=== PATIENT | male | born 1945 | race Hispanic/Latino ===

== ENCOUNTER 2016-08-25 13:35 | Observation (INO) | payer MEDICARE, OTHER ==
--- NOTE | 2016-08-25 13:49 | ED PDOC ---
Arrival/HPI <Manuel Connolly - Last Filed: 08/25/16 18:08> <Xuan Escamilla - Last Filed: 08/25/16 18:17> - General Chief Complaint: High Blood Pressure Time Seen by Provider: 08/25/16 13:38 - History of Present Illness Narrative History of Present Illness (Text): 08/25/16 14:35 71 y/o M w/ PMHx of HTN presents to the ED c/o nausea and vomiting 2/2 high blood pressure. Pt reports elevated BP over the last 1-2wks. Pt states BP has risen even higher over the last few days, causing nausea, vomiting, and dizziness. Pt states this has happened before when his BP was elevated. Pt has not been able to tolerate PO intake since . NBNB vomiting started on Thursday after PO intake. Pt also admits to decreased appetite in addition to general nausea. Dizziness described as both pre-syncopal and vertigo - dizziness made worse w/ head mvt. Pt denies syncope, F/C, [place], diplopia, blurry vision, CP, SOB, abd pain, D/C, edema. (Xuan Escamilla) Past Medical History - Provider Review Nursing Documentation Reviewed: Yes - Psychiatric Hx Depression: No Hx Emotional Abuse: No Hx Physical Abuse: No Hx Substance Use: No - Suicidal Assessment Feels Threatened In Home Enviroment: No <Xuan Escamilla - Last Filed: 08/25/16 18:17> Family/Social History - Physician Review Nursing Documentation Reviewed: Yes Family/Social History: No Known Family HX Hx Alcohol Use: Yes (social) Hx Substance Use: No Hx Substance Use Treatment: No <Xuan Escamilla - Last Filed: 08/25/16 18:17> Allergies/Home Meds <Manuel Connolly - Last Filed: 08/25/16 18:08> <Xuan Escamilla - Last Filed: 08/25/16 18:17> Allergies/Adverse Reactions: Allergies No Known Allergies Allergy (Verified 08/25/16 13:49) Home Medications: Home Meds Medication Instructions Recorded Confirmed Amlodipine/Valsartan 1 tab PO DAILY 08/25/16 08/25/16 [Amlodipine-Valsartan 10-160 mg] Amoxicillin/Clavulanate [Augmentin 1 tab PO BID 08/25/16 08/25/16 875 MG-125 MG Tab] Cholecalciferol (Vitamin D3) 1 tab PO DAILY 08/25/16 08/25/16 [Vitamin D3] Naproxen [Naproxen] 500 mg PO BID 08/25/16 08/25/16 Pravastatin Sodium [Pravachol] 20 mg PO DAILY 08/25/16 08/25/16 Review of Systems - Physician Review All systems were reviewed & negative as marked: Yes - Review of Systems Constitutional: absent: Fevers Eyes: absent: Vision Changes <Xuan Escamilla - Last Filed: 08/25/16 18:17> Physical Exam - Systems Exam Skin: Present: Abrasion <Manuel Connolly - Last Filed: 08/25/16 18:08> Vital Signs Reviewed: Yes Temperature: Afebrile Blood Pressure: Hypertensive Pulse: Bradycardic Respiratory Rate: Normal Appearance: Positive for: Non-Toxic, Comfortable Pain Distress: None Mental Status: Positive for: Alert and Oriented X 3 - Systems Exam Head: Present: Atraumatic, Normocephalic Pupils: Present: PERRL Extroacular Muscles: Present: EOMI Conjunctiva: Present: Normal Mouth: Present: Dry. No: Normal Teeth (poor dentition) Nose (Internal): Present: Normal Inspection Neck: Present: Normal Range of Motion Respiratory/Chest: Present: Clear to Auscultation, Good Air Exchange. No: Respiratory Distress, Accessory Muscle Use Cardiovascular: Present: Regular Rate and Rhythm, Normal S1, S2. No: Murmurs Abdomen: Present: Tenderness, Normal Bowel Sounds. No: Distention, Peritoneal Signs, Rebound, Guarding Upper Extremity: No: Cyanosis, Edema Lower Extremity: Present: Normal Inspection. No: Edema, CALF TENDERNESS Neurological: Present: GCS=15, Speech Normal, Other (negative Stoddard-Halpike) Skin: Present: Warm, Dry, Normal Color Psychiatric: Present: Alert, Oriented x 3, Normal Insight, Normal Concentration <AndiXuan - Last Filed: 08/25/16 18:17> Vital Signs Temp Pulse Resp BP Pulse Ox 08/25/16 18:12 86 171/92 H 08/25/16 17:22 76 18 178/89 H 98 08/25/16 15:20 163/91 H 08/25/16 13:55 98.3 F 53 L 18 172/83 H 97 Medical Decision Making <Manuel Connolly - Last Filed: 08/25/16 18:08> - Lab Interpretations I have reviewed the lab results: Yes Interpretation: No clinic. lab abnormalty - RAD Interpretation Tower Climber: ED Physician (CXR: No active disease), Radiologist (CXR: no active disease; Head CT negative for hemorrhage) - EKG Interpretation Interpreted by ED Physician: Yes (sinus nkechi, rate 51, no ST abnormalities) Type: 12 lead EKG <Xuan Escamilla - Last Filed: 08/25/16 18:17> ED Course and Treatment: Patient seen and examined with resident Came up with treatment and disposition plan with resident Elderly male with a history of hypertension with nausea, vomiting. No focal neurological deficits on examination. Patient's abdomen is also soft nontender nondistended with positive bowel sounds in all 4 quadrants and no peritoneal signs. Patient's primary physician recommends observation in the hospital. Dr. Escamilla discussed with Dr. Mondragon who accepted patient to his service. Patient with no focal neurological deficits, currently asymptomatic except for hypertension, aware of and agrees with plan. (Manuel Connolly) 08/25/16 14:46 71 y/o M w/ nausea, vomiting, and elevated BP - CBC, CMP, Lipase - Cardiac ISO - Urinalysis - CXR - EKG - Pepcid, Zofran - NS bolus - Home med: Amlodipine 10mg/Valsartan 160mg - reassess and dispo 08/25/16 17:08 decreased nausea after reglan and benadryl. Head CT negative for hemorrhage. Nonspecific white matter changes identifies. 08/25/16 17:17 No vomiting in ED. Nausea improved. Pt ambulatory at bedside. Pt agreeable w/ discharge plan Pt to follow up w/ PMD as soon as possible for HTN. 08/25/16 17:33 Spoke to Pt's PMD, Dr. Asha Dominguez, who wants pt admitted for observation. States pt was unsteady and unable to ambulate at home. 08/25/16 18:[address] Mondragon who recommended 10mg Hydralzine for HTN. Pt admitted to Remote Tele Obs under Dr. Mondragon. ([facility]) - Lab Interpretations Lab Results: 08/25/16 15:15 08/25/16 15:15 Lab Results 08/25/16 17:10: Urine Color Yellow, Urine Appearance Clear, Urine pH 6.0, Ur Specific Rush >= 1.030, Urine Protein Trace H, Urine Glucose (UA) Negative, Urine Ketones >=80, Urine Blood Negative, Urine Nitrate Negative, Urine Bilirubin Small H, Urine Urobilinogen 0.2, Ur Leukocyte Esterase Negative, Urine RBC Pending, Urine WBC Pending 08/25/16 15:15: Sodium 140, Potassium 4.4, Chloride 104, Carbon Dioxide 22, Anion Gap 18, BUN 34 H, Creatinine 1.2, Est GFR ( Amer) > 60, Est GFR ( Non-Af Amer) 60, Random Glucose 101, Calcium 10.0, Total Bilirubin 1.6 H, AST 31 , ALT 28, Alkaline Phosphatase 72, Lactate Dehydrogenase 417, Total Creatine Kinase 120, Troponin I < 0.01, Total Protein 8.0, Albumin 4.5, Globulin 3.4, Albumin/Globulin Ratio 1.3, Lipase 45 08/25/16 15:15: WBC 7.9, RBC 4.95, Hgb 15.7, Hct 44.4, MCV 89.7, MCH 31.7, MCHC 35.4, RDW 12.7, Plt Count 216, MPV 10.5, Gran % 90.5 H, Lymph % (Auto) 6.6 L, [place] % (Auto) 2.5, Eos % (Auto) 0.1 L, Baso % (Auto) 0.3, Gran # 7.13 H, Lymph # 0.5 L, [place] # 0.2, Eos # 0.0, Baso # 0.02 - RAD Interpretation Radiology Orders: 08/25/16 14:32 CXR [CHEST PORTABLE] [RAD] Stat 08/25/16 15:37 HEAD W/O CONTRAST [CT] Stat - Medication Orders Current Medication Orders: Hydralazine HCl (Apresoline) 10 mg IVP STAT LUDWIN Last Admin: 08/25/16 18:12 Dose: 10 mg Discontinued Medications Amlodipine Besylate (Norvasc) 10 mg PO STAT STA Stop: 08/25/16 14:33 Last Admin: 08/25/16 15:20 Dose: 10 mg Diphenhydramine HCl (Benadryl) 25 mg IVP STAT STA Stop: 08/25/16 15:37 Last Admin: 08/25/16 16:35 Dose: 25 mg Famotidine (Pepcid) 20 mg IVP STAT STA Stop: 08/25/16 14:31 Last Admin: 08/25/16 15:17 Dose: 20 mg Sodium Chloride (Sodium Chloride 0.9%) 1,000 mls @ 999 mls/hr IV .Q1H1M STA Stop: 08/25/16 15:31 Last Admin: 08/25/16 15:18 Dose: 999 mls/hr Losartan Potassium (Cozaar) 100 mg PO ONCE ONE Stop: 08/25/16 14:36 Last Admin: 08/25/16 15:20 Dose: 100 mg Metoclopramide HCl (Reglan) 10 mg IVP STAT STA Stop: 08/25/16 15:37 Last Admin: 08/25/16 16:35 Dose: 10 mg Ondansetron HCl (Zofran Inj) 4 mg IVP STAT STA Stop: 08/25/16 14:31 Last Admin: 08/25/16 15:17 Dose: 4 mg Disposition/Present on Arrival <Manuel Connolly - Last Filed: 08/25/16 18:08> - Present on Arrival Any Indicators Present on Arrival: No - Disposition Have Diagnosis and Disposition been Completed?: Yes Disposition Time: 17:21 Patient Plan: Observation <Xuan Escamilla - Last Filed: 08/25/16 18:17> - Disposition Diagnosis: Hypertension, Nausea Disposition: HOSPITALIZED Patient Problems: Current Active Problems Problem Status Onset Hypertension Acute Nausea Acute Condition: FAIR Referrals: PCP,NO [Primary Care Provider] - Follow up with primary
[2016-08-25 13:56] VITALS: BMI 31.7
[2016-08-25] MEDS ORDERED: Sodium Chloride 0.9% 1,000 ML IV STA (14:31)
--- NOTE | 2016-08-25 14:55 | RAD ---
HISTORY: nausea/vomiting COMPARISON: No prior. FINDINGS: LUNGS: No active pulmonary disease. PLEURA: No significant pleural effusion identified, no pneumothorax apparent. CARDIOVASCULAR: Normal. OSSEOUS STRUCTURES: No significant abnormalities. VISUALIZED UPPER ABDOMEN: Normal. OTHER FINDINGS: None. IMPRESSION: No active disease.
[2016-08-25 15:20] LABS: ADD MANUAL DIFF? NO
[2016-08-25 15:24] LABS: BASO # 0.02 K/mm3 (0.0-2.0); BASO % 0.3 % (0.0-3.0); EOS % 0.1 % (1.5-5.0); GRAN # 7.13 (1.4-6.5); GRAN % 90.5 % (50.0-68.0); HEMATOCRIT 44.4 % (42.0-52.0); LYMPH # 0.5 (1.2-3.4); LYMPH % 6.6 % (22.0-35.0); MEAN CELL VOLUME 89.7 fL (80.0-105.0); MEAN CORPUSCULAR HEMOGLOBIN 31.7 pg (25.0-35.0); MEAN CORPUSCULAR HGB CONC 35.4 g/dl (31.0-37.0); MEAN PLATELET VOLUME 10.5 fl (7.0-11.0); MONO # 0.2 (0.1-0.6); MONO % 2.5 % (1.0-6.0); PLATELET COUNT 216 10^3/uL (120.0-450.0); RED CELL DISTRIBUTION WIDTH 12.7 % (11.5-14.5); WHITE BLOOD COUNT 7.9 10^3/ul (4.5-11.0)
[2016-08-25] MEDS ORDERED: DiphenhydrAMINE 50 mg/ml Inj IVP STA (15:36)
[2016-08-25 15:42] LABS: ALB/GLOB RATIO 1.3 (1.1-1.8); ALKALINE PHOSPHATASE 72 U/L (38-133); ALT/SGPT 28 U/L (7-56); AST/SGOT 31 U/L (15-59); BILIRUBIN,TOTAL 1.6 mg/dL (0.2-1.3); BLOOD UREA NITROGEN 34 mg/dL (7-21); CARBON DIOXIDE 22 mmol/L (21-33); CHLORIDE 104 mmol/L (98-107); GFR AFRICAN-AMERICAN > 60; GLUCOSE,RANDOM 101 mg/dL (70-110); LIPASE 45 U/L (23-300); POTASSIUM 4.4 mmol/L (3.6-5.0); SODIUM 140 mmol/L (132-148)
[2016-08-25 16:06] LABS: TROPONIN I < 0.01 ng/mL
--- NOTE | 2016-08-25 17:03 | CT ---
PROCEDURE: CT HEAD WITHOUT CONTRAST. HISTORY: dizziness w/ HTN COMPARISON: None available. TECHNIQUE: Axial computed tomography images were obtained through the head/brain without intravenous contrast. Radiation dose: Total exam DLP = 711.58 mGy-cm. This CT exam was performed using one or more of the following dose reduction techniques: Automated exposure control, adjustment of the mA and/or kV according to patient size, and/or use of iterative reconstruction technique. FINDINGS: HEMORRHAGE: No intracranial hemorrhage. BRAIN: Diffuse atrophy with prominence of the ventricles and sulci noted. No mass effect or edema. Intracranial atherosclerotic calcifications. Mild scattered white matter hypodensities, which are nonspecific, but often seen with chronic microvascular ischemic disease. Please note that MRI with diffusion imaging is more sensitive in the detection of acute ischemic event. VENTRICLES: No hydrocephalus. CALVARIUM: Unremarkable. PARANASAL SINUSES: Unremarkable as visualized. No significant inflammatory changes. MASTOID AIR CELLS: Unremarkable as visualized. No inflammatory changes. OTHER FINDINGS: None. IMPRESSION: Generalized atrophy. Mild nonspecific scattered white matter changes.
[2016-08-25 17:23] LABS: URINE BILIRUBIN SMALL (NEGATIVE); URINE BLOOD NEGATIVE (NEGATIVE); URINE GLUCOSE (UA) NEGATIVE (NEGATIVE); URINE KETONE >=80 mg/dL (NEGATIVE); URINE LEUKOCYTE ESTERASE NEGATIVE Leu/uL (NEGATIVE); URINE PROTEIN TRACE mg/dL (<30 mg/dL); URINE UROBILINOGEN 0.2 E.U./dL (<1 E.U./dL)
[2016-08-25 17:27] LABS: URINE APPEARANCE CLEAR (CLEAR); URINE COLOR YELLOW (YELLOW)
[2016-08-25 18:15] LABS: URINE BACTERIA MOD (NEG); URINE RBC 0 - 2 /hpf (0-2); URINE WBC 0 - 2 /hpf (0-6)
[2016-08-25] MEDS ORDERED: Pantoprazole 40 mg EC Tab PO STA (19:48)
--- NOTE | 2016-08-25 20:33 | CARD ---
APPROVED REPORT EKG Measurement Heart [id number] <Conclusion> Sinus bradycardia Otherwise normal ECG
[2016-08-25 21:10] LABS: TROPONIN I 0.01 ng/mL
[2016-08-25 21:11] LABS: FREE T4 1.04 ng/dL (0.78-2.19); T4 9.6 ug/dL (5.5-11.0)
[2016-08-25 21:24] LABS: THYROID STIMULATING HORMONE 1.3 mIU/mL (0.46-4.68)
[2016-08-26 01:07] LABS: URIC ACID 7.3 mg/dL (3.5-8.5)
[2016-08-26 01:20] LABS: TROPONIN I 0.03 ng/mL
[2016-08-26] MEDS ORDERED: Pantoprazole 40 mg EC Tab PO SCH (06:30)
[2016-08-26 07:49] LABS: ADD MANUAL DIFF? NO
[2016-08-26 07:52] LABS: BASO # 0.04 K/mm3 (0.0-2.0); BASO % 0.6 % (0.0-3.0); EOS # 0.2 (0.0-0.7); EOS % 3.6 % (1.5-5.0); GRAN # 4.65 (1.4-6.5); GRAN % 70.1 % (50.0-68.0); HEMATOCRIT 39.4 % (42.0-52.0); LYMPH # 1.1 (1.2-3.4); LYMPH % 16.4 % (22.0-35.0); MEAN CELL VOLUME 89.1 fL (80.0-105.0); MEAN CORPUSCULAR HEMOGLOBIN 31.7 pg (25.0-35.0); MEAN CORPUSCULAR HGB CONC 35.5 g/dl (31.0-37.0); MEAN PLATELET VOLUME 10.6 fl (7.0-11.0); MONO # 0.6 (0.1-0.6); MONO % 9.3 % (1.0-6.0); PLATELET COUNT 199 10^3/uL (120.0-450.0); RED CELL DISTRIBUTION WIDTH 12.8 % (11.5-14.5); WHITE BLOOD COUNT 6.6 10^3/ul (4.5-11.0)
[2016-08-26 08:10] LABS: ALB/GLOB RATIO 1.3 (1.1-1.8); ALKALINE PHOSPHATASE 59 U/L (38-133); ALT/SGPT 25 U/L (7-56); AST/SGOT 26 U/L (15-59); BILIRUBIN,DIRECT 0.3 mg/dL (0.0-0.4); BILIRUBIN,TOTAL 1.2 mg/dL (0.2-1.3); BLOOD UREA NITROGEN 26 mg/dL (7-21); CARBON DIOXIDE 22 mmol/L (21-33); CHLORIDE 107 mmol/L (98-107); GFR AFRICAN-AMERICAN > 60; GLUCOSE,RANDOM 82 mg/dL (70-110); MAGNESIUM 2.1 mg/dL (1.7-2.2); POTASSIUM 3.7 mmol/L (3.6-5.0); SODIUM 140 mmol/L (132-148); TOTAL PROTEIN 6.6 g/dL (5.8-8.3)
[2016-08-26 08:20] LABS: TROPONIN I 0.03 ng/mL
[2016-08-26] MEDS ORDERED: Non Formulary Medication (Cholecalciferol (Vitamin D3) [Vitamin D3] 1 TAB) PO SCH (10:00)
[2016-08-26] MEDS ORDERED: Gadodiamide 287 MG/ML VIAL (20ML) IV ONE (10:58)
--- NOTE | 2016-08-26 12:10 | MRI ---
PROCEDURE: MRI BRAIN WITH AND WITHOUT CONTRAST HISTORY: ? questionable TIA COMPARISON: None. TECHNIQUE: Multiplanar, multisequence MR images of the brain were obtained with and without intravenous contrast enhancement. 20 cc of Omniscan FINDINGS: HEMORRHAGE: None DWI: No evidence of an acute or early subacute infarction. BRAIN PARENCHYMA: No mass,mass effect or edema. No atrophy or chronic microvascular ischemic changes. ENHANCEMENT: No abnormal intracranial enhancement. VENTRICLES: Unremarkable. No hydrocephalus. CRANIUM: Unremarkable. ORBITS: Grossly unremarkable. PARANASAL SINUSES/MASTOIDS: Clear VASCULAR SYSTEM: Skull base flow voids intact. OTHER FINDINGS: None . IMPRESSION: No acute findings
--- NOTE | 2016-08-26 12:11 | MRI ---
PROCEDURE: Magnetic Resonance Angiography Brain HISTORY: ? TIA COMPARISON: None available. TECHNIQUE: 3D time of flight MR angiography of the intracranial arteries was performed. Rotating maximum intensity projection images were generated. FINDINGS: INTERNAL CEREBRAL ARTERIES: Unremarkable. The skull base, petrous, cavernous and supraclinoid segments are bilaterally widely patient. ANTERIOR CEREBRAL ARTERIES: Unremarkable. A1 and A2 segments are widely patent. Smaller distal branches unremarkable, as visualized. MIDDLE CEREBRAL ARTERIES: Unremarkable. M1 and M2 segments are widely patent. Perisylvian branches grossly symmetric. POSTERIOR CIRCULATION: Basilar Artery: Unremarkable. Distal Vertebral Arteries: Unremarkable. Posterior Cerebral Arteries: Unremarkable. Posterior Inferior Cerebellar Arteries: Unremarkable. ANEURYSM/ VASCULAR MALFORMATIONS: None. OTHER FINDINGS: None. IMPRESSION: Unremarkable MR angiography of the brain.
--- NOTE | 2016-08-26 12:42 | HP ---
HISTORY OF PRESENT ILLNESS: The patient is a 71-year-old male who presented to the Emergency Room wi th 4-day history of poor appetite, poor p.o. intake, dizziness, generalized weakness, and nausea and vomiting. The patient was seen by his primary care physician in the office. The patient was sent to the Emergency Room. The patient came to the Emergency Room by [facility] sq [facility]. The patient's 13 system review was pertinent for dictated above, with complaints of poor appeti te for 4 days, dizziness, weakness, nausea and vomiting, and uncontrolled blood pressure according to the patient's PMD and the patient for the last week or 2. The patient complains of nausea, vomiting , dizziness, and his p.o. intake has been down with poor appetite. REVIEW OF SYSTEMS: A 13-system review was done. Pertinent positive and negative dictated above. CODE STATUS: Full code. LIVING WILL AND ADVANCED DIRECTIVE: None. ALLERGIES: None. HEIGHT: 5 feet 9 inches. WEIGHT: 215. BMI: 32. SOCIAL HISTORY: Positive for social alcohol. Denies smoking. Denies substance abuse. Denies any d rug abuse. Denies any communicable transmissible disease. PAST MEDICAL AND SURGICAL HISTORY: History of hypertension, history of dyslipidemia, history of hypo vitaminosis D. The patient's past medical history is significant for hypertension, dyslipidemia, hist ory of hypertension, history of degenerative joint disease, history of social alcohol use. HOME MEDICATIONS: Pravachol 20 mg daily, Naprosyn 500 twice a day, vitamin D3 5000 units daily, Augm entin twice a day, Exforge 10/160. FAMILY HISTORY: Not available. OCCUPATIONAL HISTORY: Disabled, retired. ALLERGIES: None. PHYSICAL EXAMINATION: GENERAL: The patient is seen in stretcher #19 in the Emergency Room. The patient is lying in bed bu t does not appear ____ as patient states that he is not feeling well, still feels weak and dizzy. VITAL SIGNS: T-max 98.3; heart rate 53, 76 78, 68; blood pressure 172/83, 178/89, 162/86, 153/75; re spirations 16-18, O2 sat 97-98%. The patient is seen lying in the stretcher. HEENT: Normocephalic, atraumatic. There is questionable facial asymmetry noted. There is questiona ble tongue deviation noted. [place] conjunctivae. Anicteric sclerae. Dry oral mucosa. NECK: No neck rigidity, soft carotid bruit. CHEST: Kyphosis. LUNGS: Shows no rales, crackles, or wheezing. CARDIOVASCULAR: S1, S2, regular rhythm. Questionable soft systolic murmur in the left sternal borde r, left second intercostal space. ABDOMEN: Soft. Positive bowel sounds. No hepatosplenomegaly noted. GENITALIA: Male. RECTAL: Deferred. EXTREMITIES: Shows no pitting edema, no calf tenderness, no Homans' sign. NEUROLOGIC: The patient is alert, awake, oriented x 3. Cranial nerves II-XII intact. Motor strengt h is 5/5 in upper and lower extremity. Gait examination could not be tested. Extraocular movements were intact. No neck rigidity. Soft carotid bruit. Questionable facial asymmetry. ABDOMEN: No rebound tenderness, no guarding, no rigidity. SKIN: Warm and dry. DIAGNOSTICS: CBC: WBC 7.9, hemoglobin/hematocrit 15.7/44.4, platelet 216, granulocytes 90.5. Sodiu m 140, potassium 4.4, chloride 104, CO2 of 22, anion gap 18, BUN 34, creatinine 1.2, GFR greater than 60, glucose 101, calcium 10.0, bilirubin 1.6. LFTs are normal. Troponin: Two sets are negative at less than 0.01. Cholesterol 183, LDL 109, HDL 51. TSH 1.30, T4 ____.6, free T4 1.04. Urine pH 6.0 , specific gravity 1.030, trace protein, small bilirubin, moderate bacteria. The patient had a chest x-ray done in the Emergency Room which was negative for any pathology. The olga medina was sent for a CT of the ____ because of dizziness. CT of the head shows diffuse cerebral cor tical atrophy with prominence of the ventricle and sulci with chronic microvascular ischemic disease of the brain. The patient's EKG done in the Emergency Room shows sinus bradycardia. Low voltage. B aseline artifact. The patient was seen in the Emergency Room by the caregivers non medical and also by the attending. The osbaldo fallon was treated in the Emergency Room initially with Zofran and Reglan and IV fluid and Protonix an d Pepcid. The patient was given his home medications, Norvasc and Cozaar, without much improvement. The patient was given Benadryl 25. The patient was ordered hydralazine 10 mg IV for blood pressure control. The patient stated that his symptoms at what he usually gets because of his uncontrolled bl ood pressure. The patient's symptoms did not resolve despite above therapeutic intervention and zeny ent was advised to be placed and admitted to telemetry, on remote telemetry, for above symptoms. IMPRESSION: 1. Intractable dizziness with nausea, vomiting, poor appetite and anorexia. 2. Questionable facial asymmetry. 3. Questionable transient ischemic infarct versus cerebrovascular accident. 4. Sinus bradycardia. 5. Uncontrolled hypertension. 6. History of alcohol use and questionable alcohol dependence. 7. Granulocytosis. 8. Prerenal kidney injury. 9. Mild hyperbilirubinemia. 10. Dyslipidemia and hypercholesterolemia and elevated LDL. 11. Trace proteinuria. 12. Bilirubinuria. 13. Bacteriuria. 14. Generalized cerebral cortical atrophy with chronic microvascular ischemic disease of the brain w ith ventriculomegaly and diffuse cerebral cortical atrophy of the brain. 15. Sinus bradycardia. 16. History of hypertension, dyslipidemia and hypovitaminosis D. 17. History of hypertension, dyslipidemia, hypovitaminosis D, history of alcohol abuse. PLAN: At this time, patient is placed on remote telemetry. The patient has been ordered alcohol lev el, drug screen, serial troponins, vitamin D25 hydroxy, cardiology consultation, RPR ordered. The osbaldo fallon has been started on Antivert 12.5 three times a day, hydralazine was given p.r.n. 10 mg q. 6 p. r.n. Hydralazine has been ordered 10 mg p.o. q. 6 hours p.r.n. for systolic blood pressure greater t ortiz or equal to 170 mmHg or diastolic blood pressure greater than or equal to 100 mmHg. The patient received Benadryl 25 in the Emergency Room. The patient is started on ____. The patient is started on Diovan 320 daily, aspirin 81 daily, Lipitor 40 mg daily, Periactin 4 mg twice a day, Protonix 40 m g daily. The patient is started on vitamin D3 2000 units daily, Zofran 4 mg IV q. 4. Carotid Dopple r ordered. MRI/MRA of the brain with contrast ordered. Repeat EKG ordered. Echo with Doppler order ed. Heart healthy diet ordered. The patient has been ordered out of bed to chair. The patient was seen in the Emergency Room in bed 19. At present, patient's further management will be dependent upo n the patient's clinical condition, hemodynamic status, and as per patient's response to therapeutic intervention. The patient has been ordered repeat EKG, echo with Doppler, MRI/MRA of the brain, banda tid Doppler ordered. At present, patient's further management will be dependent upon the patient's c linical condition, hemodynamic status, and as per the patient's response to therapeutic intervention, as per patient's diagnostic test results and as per recommendation by all the physicians involved in the care of the patient. The patient has been ordered repeat labs for the morning. At present, the patient was seen in the Emergency Room. The patient is awaiting for a remote tele bed on the floor. The patient was advised about the details of his medical condition. Need for hospitalization, need for further treatment, need for further management was discussed and explained to the patient at [facility] and all questions and concerns answered, which he acknowledged and understands. Dictated and electronically signed; not read. Mauro Mondragon MD cc: [id number] TT: 08/26/2016 08:42:58 sarah
--- NOTE | 2016-08-26 16:21 | US ---
PROCEDURE: Bilateral carotid artery duplex ultrasound HISTORY: Carotid stenosis TIA PHYSICIAN(S): Dimitri Valerio MD. TECHNIQUE: Duplex sonography and color-flow Doppler were used to evaluate the carotid bifurcations and limited segments of the vertebral arteries bilaterally. The exam is somewhat limited by tortuous vessels. FINDINGS: There is mild smooth heterogeneous plaque noted at the carotid bifurcations bilaterally. The peak systolic velocity in the proximal right internal carotid artery is 63 cm/sec. This corresponds to a 20 to 39% proximal right ICA stenosis. Normal systolic velocities are noted in the proximal right external carotid artery. There is antegrade flow in the right vertebral artery. The peak systolic velocity in the proximal left internal carotid artery is 72 cm/sec. This corresponds to a 20 to 39% proximal left ICA stenosis. Normal systolic velocities are noted in the proximal left external carotid artery. There is antegrade flow in the left vertebral artery. IMPRESSION: 1. Bilateral 20-39% proximal ICA stenoses. 2. Antegrade flow in both vertebral arteries.
--- NOTE | 2016-08-26 16:46 | CON ---
DATE: 08/26/2016 HISTORY OF PRESENT ILLNESS: The patient is a 71-year-old male who presents with accelerated hyperten josefina as well as unsteady gait. PAST MEDICAL HISTORY: Notable for hypertension in which he has been treated by a centerless grinder tender, Dr. Salvador fajardo, in [place]. He states Dr. Dominguez told him his heart is healthy. No previous cardiac history in the past. No ches t pain, no shortness of breath. He denies diabetes mellitus. SOCIAL HISTORY: Negative smoker. Social drinker. REVIEW OF SYSTEMS: A 14-point review of systems was reviewed in detail. No angina, no shortness juan ath, negative edema in the lower extremities. PHYSICAL EXAMINATION: VITAL SIGNS: Blood pressure 155/95, heart rate in the 60s, normal sinus rhythm. NECK: Negative JVD. LUNGS: Without rales. HEART: Reveals S1, S2. EXTREMITIES: Without edema. ABDOMEN: No bruits noted. EKG shows sinus bradycardia with nonspecific ST-T changes. LABORATORIES: Troponins are negative. BUN and creatinine are unremarkable. Hemoglobin is 14. IMPRESSION: 1. Accelerated hypertension. 2. Unsteady gait. 3. Hypercholesterolemia. 4. No evidence for acute cardiac issues. 5. Sinus bradycardia without hemodynamic sequelae. Given these findings, the patient has been ordered a higher dose of an ARB. An echocardiogram was performed and I will review. Dimitri Mohan MD cc: [id number] TT: 08/26/2016 16:45:46 Confirmation # [id number] Dictation # [id number] ln
--- NOTE | 2016-08-26 17:08 | CARD ---
APPROVED REPORT EXAM: Two-dimensional and M-mode echocardiogram with Doppler and color Doppler. INDICATION Hypertension/HCVD 2D DIMENSIONS Left Atrium (2D)5.0 (1.6-4.0cm)IVSd1.2 (0.7-1.1cm) LVDd4.9 (3.9-5.9cm)PWd1.1 (0.7-1.1cm) LVDs3.1 (2.5-4.0cm)FS (%) 36.9 % LVEF (%)66.7 (>50%) M-Mode DIMENSIONS Aortic Root3.80 (2.2-3.7cm)Aortic Cusp Exc.2.00 (1.5-2.0cm) Aortic Valve AoV Peak Qkxjmiuk226.0cm/Pricila Peak GR.17mmHgLVOT Peak Mnmzqttp877.0cm/s LVOT VTI40.40cmAI P 1/2 Xegb371qd Mitral Valve MV E Wbyaqfpc61.5cm/sMV A Iyvenfoo81.8cm/sE/A ratio1.0 TDI Lateral E' Peak V10.70cm/sMedial E' Peak V8.38cm/sE/Lateral E'8.4 E/Medial E'10.7 Pulmonary Valve PV Peak Sxdvfdgm77.9cm/sPV Peak Grad.3mmHg Tricuspid Valve TR Peak Reeqetrx866pv/sRAP EXQBCVMI42tgSqQV Peak Gr.31mmHg EIOQ02tyBq LEFT VENTRICLE The left ventricle is normal size. There is borderline concentric left ventricular hypertrophy. The left ventricular function is normal. The left ventricular ejection fraction is within the normal range. There is normal LV segmental wall motion. Transmitral Doppler flow pattern is Grade I-abnormal relaxation pattern. RIGHT VENTRICLE The right ventricle is normal size. There is normal right ventricular wall thickness. The right ventricular systolic function is normal. ATRIA The left atrium is mildly dilated. The right atrium is borderline dilated. AORTIC VALVE The aortic valve is mildly thickened but opens well. There is mild to moderate aortic regurgitation. There is no aortic valvular stenosis. MITRAL VALVE The mitral valve is mildly thickened. Mitral regurgitation is mild. TRICUSPID VALVE There is mild tricuspid regurgitation. There is mild pulmonary hypertension. GREAT VESSELS The aortic root is normal in size. The IVC is normal in size and collapses >50% with inspiration. PERICARDIAL EFFUSION There is no pericardial effusion. <Conclusion> The left ventricle is normal size. There is borderline concentric left ventricular hypertrophy. The left ventricular function is normal. The left ventricular ejection fraction is within the normal range. There is normal LV segmental wall motion. Transmitral Doppler flow pattern is Grade I-abnormal relaxation pattern. There is mild to moderate aortic regurgitation. Mitral regurgitation is mild. There is mild tricuspid regurgitation. There is mild pulmonary hypertension.
--- NOTE | 2016-08-26 22:33 | CARD ---
APPROVED REPORT EKG Measurement Heart [id number] <Conclusion> Sinus bradycardia Otherwise normal ECG
--- NOTE | 2016-08-26 22:54 | PN ---
DATE: 08/26/2016 SUBJECTIVE: The patient is seen in room 376, bed 2. The patient is seen sitting up in the bed and p adam was later on seen ambulating to the bathroom with assistance. Overnight nurse's notes were re viewed. The patient still complaining of some dizziness, but improved since yesterday. The patient was found to be alert, awake, responsive, and oriented x 3. According to the nurses' note, patient d enied dizziness. PHYSICAL EXAMINATION: VITAL SIGNS: T-max 98. Heart rate 60s, 56, 55, 51, 90. Blood pressure 155/95, 133/82, 153/75, 166/ 86, 171/92. Respiration 18-20. O2 sat 97%. HEAD: Normocephalic, atraumatic. HEENT: Shows questionable facial asymmetry. NECK: Soft carotid bruit. CHEST: Kyphosis. LUNGS: Shows no rales, crackles, or wheezing. CARDIOVASCULAR: Shows S1, S2, regular rhythm. ABDOMEN: Soft, positive bowel sounds. GENITALIA: Male. RECTAL: Deferred. EXTREMITIES: Shows no pitting edema, no calf tenderness, no Homans' sign. NEUROLOGIC: The patient is alert, awake, oriented x 3. Cranial nerves II-XII intact. Gait examinat ion not tested. VASCULAR: Palpable pulses. MUSCULOSKELETAL: Shows a body mass index of 32. DIAGNOSTICS: On 08/26, WBC 6.6, hemoglobin/hematocrit 14 and 39.4, platelets 199, granulocytes 70% se gs. Sodium 140, potassium 3.7, chloride 107, CO2 of 22, anion gap 15, BUN 26, creatinine 1.1, GFR gr eater than 60, glucose 82. Uric acid 7.3. Calcium 9.0, magnesium 2.1. LFTs are normal. Troponin a ll 4 sets are negative. Vitamin D 25-hydroxy 43. TSH 1.30. T4 is 9.6. Alcohol level negative. RP R negative. IMPRESSION AND PLAN: 1. Intractable dizziness and questionable vertigo with nausea, vomiting, poor appetite and anorexia (etiology undetermined). 2. Questionable facial asymmetry. 3. Sinus bradycardia. 4. Uncontrolled hypertension. 5. Uncontrolled hypertension. 6. Granulocytosis. 7. Mild prerenal kidney injury. 8. Hypercholesterolemia with elevated LDL. 9. Trace proteinuria, bilirubinuria and bacteriuria. 10. Questionable uncontrolled accelerated hypertension. 11. Questionable gait dysfunction. 12. Asymptomatic sinus bradycardia. 13. Left ventricular ejection fraction of 66%. 14. Concentric left ventricular hypertrophy. 15. Moderate aortic regurgitation. 16. Mild mitral regurgitation. 17. Mild pulmonary arterial hypertension with right ventricular systolic pressure of 41 mmHg. 18. Concentric left ventricular hypertrophy. 19. Moderate aortic regurgitation. 20. Mild mitral and mild tricuspid regurgitation, mild pulmonary arterial hypertension. 21. Bilateral 20% to 39% proximal internal carotid artery stenosis. 22. Asymptomatic sinus bradycardia. PLAN: At this time, the patient's all diagnostic data reviewed and explained to the patient. At this time, the patient is maintained on: 1. Antivert 25 mg 3 times a day. 2. Hydralazine 10 mg q.6 p.r.n. 3. Diovan 320 mg daily. 4. Ecotrin 81 mg daily. 5. Lipitor 40 mg daily. 6. Periactin 4 mg twice a day. 7. Protonix 40 mg daily. 8. Vitamin D3 at 2000 units daily. 9. Zofran 4 mg IV q.4 p.r.n. At present, patient is medically stable. None of the diagnostic testing is suggestive of any acute c oronary or neurological event. The patient's MRI/MRA of the brain was reviewed, which was negative f or any acute pathology. If stays stable, patient will be considered [facility]. Dictated and electronically signed, not read. Mauro Mondragon MD cc: [id number] TT: 08/26/2016 22:53:45 Confirmation # [id number] Dictation # [id number]
[2016-08-27 09:20] VITALS: BP 147/92; RESP 22; TEMP 98.3; O2SAT 94
--- NOTE | 2016-08-27 11:30 | DS ---
SUBJECTIVE: The patient is seen lying in bed in room 376, bed 2. Overnight nurse's notes were revie wed. No adverse events documented. PHYSICAL EXAMINATION: VITAL SIGNS: T-max 98.3, heart rate 52, 60, 56, 55, blood pressure 133/82, 147/92, respirations 20, O2 sat 97%. HEAD: Normocephalic, atraumatic. HEENT: Shows pink conjunctivae, anicteric sclerae. No oropharyngeal lesion. NECK: No neck rigidity. CHEST: Kyphosis. LUNGS: Shows no rales, crackles, or wheezing. CARDIOVASCULAR: S1, S2, regular rhythm, positive systolic murmur right second intercostal space, lef t sternal border, left second intercostal space. ABDOMEN: Soft, positive bowel sounds. GENITALIA: Male. RECTAL: Deferred. EXTREMITIES: Shows no pitting edema, no calf tenderness, no Homans' sign. NEUROLOGIC: The patient is alert, awake, oriented x 3. Cranial nerves II-XII intact. GAIT: Deferred. VASCULAR: Palpable pulses. Plantars are downward. DTRs are 2+. Cranial nerves II-XII are intact. PSYCHIATRIC: Negative for anxiety, depression. Negative for suicidal or homicidal ideation. DIAGNOSTICS: None from today. The patient's EKG from today was noted, EKG from today is noted, whic h shows sinus bradycardia, no ST elevations or depressions. FINAL IMPRESSION, PLAN, AND DISCHARGE DIAGNOSES: 1. Intractable dizziness versus questionable vertigo with nausea, vomiting, poor appetite and anorex ia (resolved), etiology undetermined. 2. Questionable facial asymmetry. 3. Sinus bradycardia. 4. Uncontrolled accelerated hypertension. 5. Bradycardia. 6. Granulocytosis. 7. Mild prerenal kidney injury. 8. Hypercholesterolemia with elevated LDL. 9. Proteinuria. Bilirubinuria. Bacteriuria. 10. Left ventricular ejection fraction of 66%. 11. Right ventricular systolic pressure of 41 mmHg with left ventricular hypertrophy. 12. Mildly thickened aortic valve with moderate aortic regurgitation. 13. Mildly thickened mitral valve with mild mitral regurgitation. 14. Mild tricuspid regurgitation with mild pulmonary arterial hypertension with right ventricular sy stolic pressure of 41 mmHg. The patient is cleared for discharge. DISCHARGE MEDICATIONS: Exforge, which is a combination of Norvasc and Diovan 10/160 which will be ch anged. The patient will be put patient will be put on Diovan 320 mg p.o. daily. The patient is star jeanne on Diovan 320 mg daily instead of Exforge. The patient is discharged on Diovan 320 mg daily. Nor vasc is held at this time, Ecotrin 81 mg daily, meclizine 25 mg 3 times a day, Periactin 4 mg twice a day, Pravachol increased to 40 mg daily, Protonix 40 mg daily, vitamin D3 2000 units p.o. daily. The patient is discharged home. DISCHARGE FOLLOWUP: With Dr. Casa Watson within 1 week. DISCHARGE MEDICATIONS: As per updated ambulatory orders transmitted to pharmacy. The patient was ad vised no alcohol, no smoking, no driving. The patient's medications were transmitted to [facility] pharmacy in [place]. The patient during this hospitalization was daily updated about his conditi on, diagnosis, treatment plan, management plan at length All questions and concerns answered during this hospitalization, which he acknowledged and understood. Time spent in entire discharge management is more than 45 minutes. Dictated and electronically read, not signed. Mauro Mondragon MD cc: [id number] TT: 08/27/2016 11:29:38 [place]
[2016-08-27 13:07] VITALS: PULSE 50
--- NOTE | 2016-08-27 13:09 | PN ---
DATE: 08/27/2016 The patient is asymptomatic with resting bradycardia approximately 60. PHYSICAL EXAMINATION: VITAL SIGNS: Blood pressure 147/92 which is improved on medications. NECK: Negative JVD. LUNGS: Without rales. HEART: Reveals S1, S2. EXTREMITIES: Without edema. LABORATORIES: Reveal hemoglobin of 14. Chemistries: Troponins are negative with a potassium of 3.7 . IMPRESSION: 1. Asymptomatic sinus bradycardia. 2. Accelerated hypertension, which is better controlled. 3. History of diffuse arthritis. 4. Hypercholesterolemia. 5. No evidence for acute coronary syndrome. PLAN: Given these findings, the patient's blood pressure is better controlled on Diovan. From a cardiac perspective, the patient can be discharged. The patient refuses a stress test given h is previous side effects in the past. Dimitri Mohan MD cc: [id number] TT: 08/27/2016 13:08:32 Confirmation # [id number] Dictation # [id number] carlos
--- NOTE | 2016-08-27 14:37 | CARD ---
APPROVED REPORT EKG Measurement Heart [id number] MS [id number] <Conclusion> Sinus bradycardia Otherwise normal ECG
== END 2016-08-27 13:11 | disposition home or self-care (01) ==
LOC: ED 13:35 → ERH 17:42 → 3RSO 21:13
PROVIDERS: ADMIT Internal Medicine; ATTEND Internal Medicine
DX: I10 Essential (primary) hypertension (principal); I08.3 Combined rheumatic disorders of mitral, aortic and tricuspid valves; I65.23 Occlusion and stenosis of bilateral carotid arteries; I27.2 Other secondary pulmonary hypertension; M19.90 Unspecified osteoarthritis, unspecified site; E78.00 Pure hypercholesterolemia, unspecified; E78.5 Hyperlipidemia, unspecified; E55.9 Vitamin D deficiency, unspecified; G31.89 Other specified degenerative diseases of nervous system; R26.81 Unsteadiness on feet; R42 Dizziness and giddiness; R11.2 Nausea with vomiting, unspecified; R63.0 Anorexia; R00.1 Bradycardia, unspecified; R82.71 Bacteriuria; R82.2 Biliuria
CPT/HCPCS: 36415; 70450; 70544; 70553; 71010; 80053; 80061; 81001; 82248; 82306; 82550; 82948; 83615; 83690; 83735; 84436; 84439; 84443; 84484; 84550; 85025; 86592; 93005; 93306; 93880; 96374; 96375; 96376; 99285; A9579; G0378; G0480; J0360; J1200; J2405; J2765; J7040